=== PATIENT | female | born 1975 | race Caucasian/White ===

== ENCOUNTER 2020-06-30 15:45 | Emergency (ER) | payer BC ==
[~2020-06-30] VITALS: Ht 162.6 cm; Wt 56.8 kg
[2020-06-30 16:03] VITALS: BP 109/78
== END 2020-06-30 16:23 | disposition home or self-care (01) ==
LOC: ER 15:47
DX: J02.9 Acute pharyngitis, unspecified (principal); R05 Cough; Z20.828 Contact with and (suspected) exposure to other viral communicable diseases; Z72.89 Other problems related to lifestyle
CPT/HCPCS: 36415; 87635; 99283